=== PATIENT | female | born 1965 | race Caucasian/White ===

== ENCOUNTER 2018-07-11 06:44 | Day surgery (SDC) | payer BC ==
[~2018-07-11 06:44] MED LIST: ACETAMINOPHEN 1,000 MG/100 ML BTL IV ONE; CEFAZOLIN 2 Gram 2 GM/50 ML BAG IVPB ONE
[2018-07-11] MEDS ORDERED: BUPIVACAINE 0.5% W/EPI MPF 30 ML VIAL IVP ONE (06:45)
[2018-07-11] MEDS ORDERED: SEVOFLURANE 250 ML INH ONE (06:45)
[2018-07-11] MEDS ORDERED: MORPHINE SULFATE PF 10MG/10ML VIAL IV ONE (06:45)
[2018-07-11] MEDS ORDERED: METHYLPREDNISOLONE 40MG/VIAL IM ONE (06:45)
[2018-07-11] MEDS ORDERED: BUPIVACAINE 0.5% (5MG/ML) PF 30ML VIAL IVP ONE (06:45)
[2018-07-11] MEDS ORDERED: DEXAMETHASONE 4 MG/ML 1ML VIAL IVP ONE ×2 (06:45)
[2018-07-11] MEDS ORDERED: FENTANYL PF 100MCG/2ML VIAL IV ONE (06:45)
[2018-07-11] MEDS ORDERED: BUPIVACAINE LIPOSOME/PF 133MG/10ML VIAL IV ONE (06:45)
[2018-07-11] MEDS ORDERED: MIDAZOLAM HCL 2MG/2ML VIAL IV ONE (06:45)
[2018-07-11] MEDS ORDERED: HYDROCODONE/APAP 7.5/325MG TABLET PO ONE (06:45)
[2018-07-11] MEDS ORDERED: ONDANSETRON HCL IV 4 MG/2 ML VIAL IVP ONE ×2 (06:45)
[2018-07-11] MEDS ORDERED: LIDOCAINE 2% MDV (20MG/ML) 20ML VIAL IV ONE (06:45)
[2018-07-11] MEDS ORDERED: PROPOFOL 10 MG/ML VIAL IV ONE (06:45)
--- NOTE | 2018-07-12 11:50 | Operative Note ---
DATE OF SURGERY: 07/11/2018 PREOPERATIVE DIAGNOSIS: Calcific tendonitis, left shoulder, with impingement. POSTOPERATIVE DIAGNOSES: 1. 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 2. Moderate synovitis glenohumeral joint. 3. Anterior glenohumeral labral tear. 4. Profound external impingement of the left shoulder. 5. Calcific tendonitis, left rotator cuff. 6. Arthrosis, left distal clavicle. OPERATION: 1. Left shoulder arthroscopy with intraarticular debridement. 2. Left shoulder open acromioplasty, CA ligament resection, subacromial bursectomy, denies rotator cuff debridement. 3. Left shoulder distal clavicle resection. Staff Surgeon: Tavares Vallecillo MD Anesthesia: General. Preparation: Chloraprep. Individual Considerations: None. PROCEDURE: The patient was taken to the operating room, placed supine on the operating room table. She had a successful induction with general anesthetic. Her upper extremity was prepped and draped in the usual fashion after she was placed in a semi-seated beach chair position. The patient had no instability of her shoulder on exam. The patient had a posterior portal identified for arthroscopy. Skin was infiltrated with 0.5% Marcaine with epinephrine prior. An 18-gauge spinal needle was then placed in the joint, and the joint was inflated with normal saline. A stab wound was made and a blunt-tipped trocar for the scope was placed in the joint. The joint was inflated with normal saline. An anterior accessory portal was then made just inferior to the intact long head of the biceps tendon in retrograde fashion with a Wissinger abby, and the joint was irrigated out. She had grade 3-4 changes on both the humeral head and the glenoid. These grade 3 changes which were unstable were debrided. Moderate synovitis was debrided. No loose bodies. The intact long head, rotator cuff underneath looked intact but there was fraying of the labrum respiratory and this was debrided to a stable rim. After irrigation, the portals were closed with rober. The patient had an anterior approach to the subacromial space and distal clavicle. Skin was again infiltrated with 0.5% Marcaine with epinephrine prior. An anterior deltoid interval was identified. Deltoid was split. Care was taken not to split the deltoid more than about 4 cm distal to the tip of the anterior aspect of the acromion to prevent injury to the axillary nerve. Once in the subacromial space, there were a lot of spurs and bursitis. The deltoid was then taken subperiosteally off the anterior aspect of the downsloping degenerated acromion over the top of the intact CA ligament and off the anterior aspect of a highly degenerated distal clavicle. CA ligament was resected with a Bovie. Distal clavicle was resected with an oscillating saw. The patient had a downsloping acromion and I went ahead and did an anterior acromioplasty taking about 6-7 mm tapering posteromedially to include the spurs at the AC joint. The undersurface was smoothed with a rasp. I then did a complete bursectomy with Metzenbaum scissors, which was thickened. I now had a good look at the rotator cuff. Near the supraspinatus insertion laterally, there a small area of calcification. I went ahead and debrided that basically with a sharp osteotome just to scrape most of this out. There was really no tear to repair. There were some areas of the supraspinatus near the AC joint that had looked like had striations and were irritated by them but there was no gross tear to repair. After irrigation, the deltoid and reattached to remaining acromion with multiple interrupted #2 Vicryl going directly through the bony acromion. The periosteal cup of the distal clavicle was closed with running #2 Vicryl. Anterior deltoid interval was closed with running #1 Vicryl. Subcu was closed with 2-0 plus Vicryl and skin was closed with running 3-0 quill. The patient had an 18-gauge spinal needle placed into the subacromial space. This was infiltrated with 15 mL of 0.5% Marcaine with epinephrine along with 10 mg of morphine and along with 40 mg of Depo-Medrol. A sterile bulky compressive dressing and sling were applied. The patient tolerated the procedure well. Needle and sponge counts were correct. Estimated blood loss was minimal. She was taken back to recovery in good condition. There were no complications. [facility]
== END 2018-07-11 11:35 | disposition home or self-care (01) ==
LOC: SUR 06:44
PROVIDERS: ATTEND Orthopaedic Surgery
DX: S43.431A Superior glenoid labrum lesion of right shoulder, initial encounter (principal); M75.32 Calcific tendinitis of left shoulder; M65.812 Other synovitis and tenosynovitis, left shoulder; M94.212 Chondromalacia, left shoulder; E78.00 Pure hypercholesterolemia, unspecified
CPT/HCPCS: 29822; 23130; 23120; 01630; 64415; J2405; J3010; J0690; C9290; 76942; J1030